=== PATIENT | female | born 1955 | race Caucasian/White ===

== ENCOUNTER → 2021-03-25 | Outpatient (CLI) | payer OTHER ==
[~2021-03-25] MED LIST: ? HTN MED; AMOCLA875 PO; LIDO5TP TOP; LISHYD2025 PO; METR500 PO; OXYACE5T PO; PANT40 PO; POTCHL20ER PO
== END | disposition home or self-care (01) ==
LOC: PLD 07:40 → LAB SHORT 07:40
DX: N95.0 Postmenopausal bleeding (principal); R93.89 Abnormal findings on diagnostic imaging of other specified body structures
CPT/HCPCS: 88305

== ENCOUNTER 2024-03-30 07:36 | Day surgery (SDC) | payer OTHER ==
[~2024-03-30] VITALS: Ht 165.1 cm; Wt 93.2 kg
[~2024-03-30 07:36] MED LIST changes: +Lactated Ringer's 1,000 ML IV ONE; +Phendimetrazine35 MG PO; +SPIR25 PO; +propofoL 50 ML IV ONE
[2024-03-30] MEDS ORDERED: Lactated Ringer's 1,000 ML IV ONE (08:50)
[2024-03-30 09:44] VITALS: BP 108/72
--- NOTE | 2024-03-30 09:58 | NUR ---
03/30/[address] CAME IN TO DISCUSS ABD PAIN
== END 2024-03-30 10:13 | disposition home or self-care (01) ==
LOC: ORSCSDS 07:36
PROVIDERS: Internal Medicine Gastroenterology
PROC: 0DJD8ZZ Inspection of Lower Intestinal Tract, Via Natural or Artificial Opening Endoscopic (ICD-10-PCS; principal; 2024-03-30 09:00)
PROC: 0DB68ZX Excision of Stomach, Via Natural or Artificial Opening Endoscopic, Diagnostic (ICD-10-PCS; principal; 2024-03-30 09:00)
DX: R10.32 Left lower quadrant pain (principal); K62.5 Hemorrhage of anus and rectum; K21.9 Gastro-esophageal reflux disease without esophagitis; R19.7 Diarrhea, unspecified; K57.30 Diverticulosis of large intestine without perforation or abscess without bleeding; K31.7 Polyp of stomach and duodenum; K29.70 Gastritis, unspecified, without bleeding; Z79.899 Other long term (current) drug therapy
CPT/HCPCS: 88305; 88342; J2704; J7120

== ENCOUNTER → 2024-06-08 | Outpatient (CLI) | payer OTHER ==
[~2024-06-08] MED LIST changes: -Lactated Ringer's 1,000 ML IV ONE; -propofoL 50 ML IV ONE
[2024-06-11 17:06] LABS: CALPROTECTIN,FECAL 48 ug/g (<=49)
== END ==
LOC: LAB 16:11 → LAB SHORT 16:11
PROVIDERS: Internal Medicine Gastroenterology
DX: R19.7 Diarrhea, unspecified (principal)
CPT/HCPCS: 83993